=== PATIENT | male | born 1970 | race Caucasian/White ===

== ENCOUNTER 2025-05-20 09:41 | Emergency (ER) | payer BC ==
[2025-05-20] MEDS ORDERED: Ondansetron PF 4 MG/2 ML Vial ONE (10:30)
[2025-05-20] MEDS ORDERED: Ketorolac Tromethamine 30 MG (1 mL) VIAL ONE (10:30)
[2025-05-20 10:44] LABS: #Basophils 0.03 10x3/uL (0.0-0.2); #Eosinophils Less than 0.03 10x3/uL (0.0-0.5); #Monocytes 0.55 10x3/uL (0.0-1.1); #Neutrophils 8.30 10x3/uL (1.5-8.4); %Basophils 0.3 % (0.0-2.0); %Eosinophils 0.1 % (0.0-6.0); %Lymphocytes 12.7 % (18.0-47.0); %Monocytes 5.4 % (0.0-10.0); %Neutrophils 81.2 % (40.0-75.0); Hematocrit 49.6 % (38.8-50.0); Hemoglobin 16.7 g/dL (13.5-17.5); Mean Corpuscular Hemoglobin 30.4 pg (27.0-33.0); Mean Corpuscular Volume 90.3 fL (81.2-95.1); Platelet Count 224 10x3/uL (150-450); Red Blood Cell (RBC) Count 5.49 10x6/uL (4.32-5.72); White Blood Cell (WBC) Count 10.22 10x3/uL (3.5-10.5)
[2025-05-20 11:08] LABS: ALT (SGPT) 30 U/L (Less than 45); AST (SGOT) 19 U/L (11-34); Albumin 4.2 g/dL (3.1-4.5); Alkaline Phosphatase 82 U/L (40-110); Anion Gap 10 mmol/L (10-20); BUN (Urea Nitrogen) 17 mg/dL (8.4-25.7); Bilirubin, Total 0.5 mg/dL (0.3-1.2); Calc. Creatinine Clearance 0 mL/min (70-130); Calcium 9.3 mg/dL (7.8-10.44); Carbon Dioxide 27 mmol/L (22-29); Chloride 105 mmol/L (98-107); Globulin 3.5 g/dL (2.4-3.5); Glucose 164 mg/dL (70-105); Lipase 39 U/L (8-78); Potassium 4.1 mmol/L (3.5-5.1); Sodium 138 mmol/L (136-145)
[2025-05-20 12:41] LABS: Glucose, Urine (Dipstick) Normal (Negative); Leukocyte Negative (Negative); Protein, Urine (Dipstick) 30 mg/dl (Neg-Trace); Specific Gravity, Urine 1.030 (1.005-1.030)
[2025-05-20 13:05] LABS: Bacteria/HPF None Seen HPF (None Seen); CAUTI Indications for Culture Pelvic or flank pain; Mucous/LPF 1+ LPF (<2+); RBC/HPF 0-3 HPF (0-3); WBC/HPF None Seen HPF (0-3)
[2025-05-20 13:06] LABS: Urine Culture Reflex No No
== END 2025-05-20 14:09 | disposition home or self-care (01) ==
LOC: CSHERS 09:41
DX: N20.2 Calculus of kidney with calculus of ureter (principal); N50.3 Cyst of epididymis
CPT/HCPCS: 36415; 74176; 76870; 80053; 81001; 83690; 85025; 93976; 96374; 96375; J1885